=== PATIENT | male | born 2000 | race Caucasian/White ===

== ENCOUNTER 2023-12-17 20:36 | Emergency (ER) | payer OTHER, SELFPAY ==
[2023-12-17 20:39] VITALS: BP 134/74; PULSE 84; TEMP 36.4; O2SAT 100; BMI 19.8
--- NOTE | 2023-12-17 20:47 | XR_ITS ---
The [address] [address] Patient Name: ANNA NEVAREZ MRN: [id number] date: 2000 Sex: M Assigned Patient Location: ER Current Patient Location: Accession/Order Number: [id number] Exam Date: 12/17/2023 21:07 Report Date: 12/17/2023 22:43 At the request of: KALYN CAR Procedure: XR hand LT min 3V HISTORY: Contusion COMPARISON: There are no previous studies available for comparison. TECHNIQUE: 3 views of the left hand. FINDINGS: BONE DENSITY: Normal. JOINTS: No acute abnormality. FRACTURE: No acute fracture. DISLOCATION: None. SOFT TISSUES: No radiopaque foreign body. XR/XR hand LT min 3V IMPRESSION: No acute osseous or joint abnormality. Electronically authenticated by: RY BLACKBURN Date: 12/17/2023 22:43
--- NOTE | 2023-12-17 20:50 | ED_ITS ---
HPI HPI - Extremity Injury (Upper) General Chief Complaint: Extremity Injury, Upper Stated Complaint: Extremity Injury, Upper Time Seen by Provider: 12/17/23 20:37 Source: patient Mode of arrival: walk-in Limitations: no limitations History of Present Illness HPI narrative: 23-year-old male presents to the emergency department for pain to his left hand. Shortly before coming into the emergency department the thenar eminence of his left hand was hit by a crossbow. He is right-handed and had a tetanus shot less than 10 years ago. No other injury was sustained. Hurts more to move it. Related Data Previous Rx's ?Medication ?Instructions ?Recorded acetaminophen 300 mg-codeine 30 mg 1 tab PO Q6H PRN pain 5 days #20 12/17/23 tablet tabs ibuprofen 800 mg tablet 800 mg PO Q8H PRN pain #20 tabs 12/17/23 Allergies Allergy/AdvReac Type Severity Reaction Status Date / Time No Known Drug Allergies Allergy Verified 12/17/23 20:45 Opioid HPI Opioid Management Most Recent Pain and Opioid Data: No Data to Display Review of Systems ROS Narrative A ten point review of systems is negative except as noted above. PFSH PFSH Social History Little interest or pleasure in doing things: not at all Feeling down, depressed, or hopeless: not at all Exam Narrative Exam Narrative: Nurses note and vital signs reviewed and patient is not hypoxic. General: The patient appears well and in no apparent distress. Patient is r esting comfortably on cart. Skin: Warm, dry, no pallor noted. There is no rash noted. Head: Normocephalic, atraumatic Eye: Normal conjunctiva, no drainage Ears, Nose, Mouth, and Throat: oral mucosa is moist. Nares patent. Cardiovascular: Regular Rate and Rhythm Respiratory: Patient is in no distress, no accessory muscle use Back: non-tender GI: Soft and nontender Musculoskeletal: Left thenar eminence is swollen and he has a very small abrasion present. There is no laceration. Other fingers are unaffected. Neurological: A&O, normal speech Psychiatric: Cooperative Constitutional Vital Signs, click to edit/add: Last Vital Signs Temp 97.6 F 12/17/23 20:39 Pulse 84 12/17/23 20:39 Resp 16 12/17/23 20:39 BP 134/74 12/17/23 20:39 Pulse Ox 100 12/17/23 20:39 O2 Del Method Room Air 12/17/23 20:39 Course Vital Signs Vital signs: Vital Signs Temperature 97.6 F 12/17/23 20:39 Pulse Rate 84 12/17/23 20:39 Respiratory Rate 16 12/17/23 20:39 Blood Pressure 134/74 12/17/23 20:39 Pulse Oximetry 100 12/17/23 20:39 Oxygen Delivery Method Room Air 12/17/23 20:39 Temperature 97.6 F 12/17/23 20:39 Pulse Rate 84 12/17/23 20:39 Respiratory Rate 16 12/17/23 20:39 Blood Pressure 134/74 12/17/23 20:39 Pulse Oximetry 100 12/17/23 20:39 Oxygen Delivery Method Room Air 12/17/23 20:39 MDM - Extremity Injury (Upper) MDM Narrative Medical decision making narrative: X-ray of the hand on my interpretation shows no acute findings. Tetanus is up-to-date. Thumb spica splint applied, application checked by me and found to be appropriate, he is neurovascular intact. He was started on Tylenol 3 and Motrin here and prescribed same. Treatment diagnosis and follow-up were discussed with the patient Differential Diagnosis Differential diagnosis: Likely other (Contusion, fracture) Imaging Data Left hand x-ray: My impression: No acute findings Discharge Plan Discharge Chief Complaint: Extremity Injury, Upper Clinical Impression: Contusion of hand Patient Disposition: Home, Self-Care Time of Disposition Decision: 21:28 Condition: Good Mode of Transportation: Private Vehicle Prescriptions / Home Meds: New acetaminophen-codeine 300-30 mg tablet 1 tab PO Q6H PRN (Reason: pain) 5 Days Qty: 20 0RF ibuprofen 800 mg tablet 800 mg PO Q8H PRN (Reason: pain) Qty: 20 0RF Print Language: Vincentian Instructions: Contusion in Adults (ED) Referrals: Topher Deshpande MD [Primary Care Provider] - 1 week
[2023-12-17] MEDS: ACETAMINOPHEN 300 MG/ 30 MG CODEINE TABLET 1 TAB PO (21:50)
[2023-12-17] MEDS: IBUPROFEN 400 MG TABLET 800 MG PO (21:50)
== END 2023-12-17 22:14 | disposition home or self-care (01) ==
PROVIDERS: Emergency Provider Emergency Medicine; PCP Family Medicine
DX: S60.222A Contusion of left hand, initial encounter (principal); W22.8XXA Striking against or struck by other objects, initial encounter
CPT/HCPCS: 73130; 99283

== ENCOUNTER 2023-12-28 10:38 | Emergency (ER) | payer OTHER, SELFPAY ==
[2023-12-28 10:47] VITALS: BP 118/70; PULSE 77; TEMP 36.4; O2SAT 98; BMI 22.0
--- NOTE | 2023-12-28 10:50 | ED.GENADUL1 ---
HPI HPI - General Adult General Chief complaint: Abdominal Pain Stated complaint: NAUSEA Time Seen by Provider: 12/28/23 10:39 Source: patient Mode of arrival: walk-in Limitations: no limitations History of Present Illness HPI narrative: Patient presents ED complaining of nausea vomiting. He said it started around 6 AM this morning. He went to bed last night with a stuffy nose and thought maybe he was coming down with something. He woke up this morning and was vomiting. No other sick contacts that he knows about. He does smoke around the patient states he does not remember eating anything out of the norm. and baby at home are not sick at this time. He is alert and oriented no acute distress vital signs stable resting comfortably in the bed. He said he was just concerned because when he was throwing up he was sweaty and he was throwing up multiple times so he came in for evaluation. Related Data Previous Rx's ?Medication ?Instructions ?Recorded ondansetron 4 mg disintegrating 4 mg PO DAILY PRN nausea and 12/28/23 tablet vomiting #15 tabs Allergies Allergy/AdvReac Type Severity Reaction Status Date / Time No Known Drug Allergies Allergy Verified 12/28/23 10:47 Opioid HPI Opioid Management Most Recent Opioid Data: Last Pain Scale 8 12/17/23 21:50 12/17/23 Review of Systems ROS Status of ROS 10 or more systems reviewed and unremarkable except as noted in history and below PFSH PFSH Social History Little interest or pleasure in doing things: not at all Feeling down, depressed, or hopeless: not at all Exam Narrative Exam Narrative: General: alert, no acute distress Cardiovascular: regular rate and rhythm, normal peripheral perfusion. Respiratory: Lungs CTA, respirations non labored. Extremities: no deformity, no trauma. Neurological: oriented x 4, LOC appropriate for age. Abdomen soft nontender nondistended. Constitutional Vital Signs, click to edit/add: Last Vital Signs Temp 97.6 F 12/28/23 10:47 Pulse 77 12/28/23 10:47 Resp 18 12/28/23 10:47 BP 118/70 12/28/23 10:47 Pulse Ox 98 12/28/23 10:47 O2 Del Method Room Air 12/28/23 10:47 Course Vital Signs Vital signs: Vital Signs Temperature 97.6 F 12/28/23 10:47 Pulse Rate 77 12/28/23 10:47 Respiratory Rate 18 12/28/23 10:47 Blood Pressure 118/70 12/28/23 10:47 Pulse Oximetry 98 12/28/23 10:47 Oxygen Delivery Method Room Air 12/28/23 10:47 Temperature 97.6 F 12/28/23 10:47 Pulse Rate 77 12/28/23 10:47 Respiratory Rate 18 12/28/23 10:47 Blood Pressure 118/70 12/28/23 10:47 Pulse Oximetry 98 12/28/23 10:47 Oxygen Delivery Method Room Air 12/28/23 10:47 Medical Decision Making MDM Narrative Medical decision making narrative: Patient most likely has an GI virus. He was given p.o. Zofran here in ED. Abdomen soft nontender nonsurgical. I do not see any reason for labs or CAT scan at this time. If symptoms worsen or are not improving please return to ED if worsening otherwise follow-up with family doctor. Zofran prescription will be given for home. Differential Diagnosis Differential Diagnosis: Gastroenteritis, gastritis, cyclic vomiting syndrome, food poisoning Discharge Plan Discharge Chief Complaint: Abdominal Pain Clinical Impression: Gastroenteritis Patient Disposition: Home, Self-Care Time of Disposition Decision: 10:52 Condition: Good Mode of Transportation: Private Vehicle Prescriptions / Home Meds: New ondansetron 4 mg tablet,disintegrating 4 mg PO DAILY PRN (Reason: nausea and vomiting) Qty: 15 0RF Print Language: Mauritanian Instructions: Gastroenteritis (ED) Referrals: Topher Deshpande MD [Primary Care Provider] - 1 week
--- OUTSIDE RECORDS SUMMARY | 2023-12-28 10:56 | XMS_ITS | CCD ---
Author Organization [facility] Care Team Providers Care All Round Logger Name Role Phone EDUARD, DR BLANC Admitting Unavailable EDUARD, DR BLANC Attending Unavailable EDUARD, DR BLANC Primary Care Unavailable EDUARD, DR BLANC Consulting Unavailable EDUARD, DR BLANC Admitting Unavailable EDUARD, DR BLANC Attending Unavailable EDUARD, DR BLANC Consulting Unavailable EDUARD, DR BLANC Admitting Unavailable EDUARD, DR BLANC Attending Unavailable EDUARD, DR BLANC Consulting Unavailable KIMBER, DR ALESIA Li Admitting Unavailable KIMBER, DR ALESIA Li Attending Unavailable EDUARD, DR BLANC Primary Care Unavailable KIMBER, DR ALESIA Li Consulting Unavailable ROXIE PRICE Consulting Unavailable DARION ANDREW Consulting Unavailable Problems Active Problems Problem Classification Problem Date Documented Da te Episodic/Chronic Abdominal pain (4 sources) Unspecified abdominal pain; Translations: [UNSPECIFIED ABDOMINAL PAIN] Onset: 05-04-2021 Episodic Other circulatory disease (1 source) Arteritis, unspecified; Translations: [ARTERITIS UNSPECIFIED] Onset: 05-06-2021 Chronic Screening and history of mental health and substance abuse codes (1 source) Personal history of nicotine dependence; Translations: [PERSONAL HISTORY OF NICOTINE DEPEND] Onset: 05-06-2021 Episodic Unclassified (3 sources) CONTACT W/AND (SUSP) EXPOS COVID-19; Translations: [CONTACT W/AND (SUSP) EXPOS COVID-19] Onset: 06-24-2021 Urinary tract infections (1 source) Cystitis, unspecified without hematuria; Translations: [CYSTITIS UNS WITHOUT HEMATURIA] Onset: 05-06-2021 Episodic Past or Other Problems Problem Classification Problem Date Documented Da te Episodic/Chronic Unclassified (1 source) CONTACT W/AND (SUSP) EXPOS COVID-19; Translations: [CONTACT W/AND (SUSP) EXPOS COVID-19] Onset: 06-22-2021 Results Test Name Value Interpretation Reference Range Jaxson rm Covid-19 PCR (CVDTBH)on 06-05 SARS-CoV-2 (COVID-19) RNA LILLIE+probe Ql (Unsp spec) Not detected Normal NOT DETECTED [facility] Comment on above: Result Comment: This test is not yet approved or cleared by the [place] FDA. When there are no FDA-approved or cleared tests available, and other criteria are met, FDA can make tests available under an emergency access mechanism called an Emergency Use Authorization (EUA). The EUA for this test is supported by the [place] of Health and Human Service's (HHS's) declaration that circumstances exist to justify the emergency use of in vitro diagnostics for the detection and/or diagnosis of the virus that causes COVID-19. This EUA will remain in effect (meaning this test can be used) for the duration of the COVID-19 declaration justifying emergency of IVDs, unless it is terminated or revoked by FDA (after which the test may no longer be used). When diagnostic testing is negative, the possibility of a false negative should be considered in the context of a patient's recent exposures and the presence of clinical signs and symptoms consistent with SARS-CoV-2. Performed By: #### C VDTBH #### [facility] [address] [place] [address] Dr. Florinda Davison CBC AUTO DIFFon 05-04-2021 BASO # 0.1 103/ul Normal 0.0-0.[address] [facility] Comment on above: Performed By: #### C BC #### [facility] [address] [place] [address] Dr. Florinda Davison Basophils/100 WBC (Bld) 0.4 % Normal 0.2-2.[address] [facility] Comment on above: Performed By: #### C BC #### [facility] [address] [place] [address] Dr. Florinda Davison EO # 0.0 103/ul Normal 0.0-0.7 [facility] Comment on above: Performed By: #### C BC #### [facility] [address] [place] [address] Dr. Florinda Davison Eosinophils/100 WBC (Bld) 0.1 % Critically low 0.9-7.0 [facility] Comment on above: Performed By: #### C BC #### [facility] [address] [place] [address] Dr. Florinda Davison Erythrocyte distribution width (RBC) [Ratio] 13.0 % Normal 11.0-15.0 [facility] Comment on above: Performed By: #### C BC #### [facility] [address] [place] [address] Dr. Florinda Davison Hematocrit (Bld) [Volume fraction] 44.4 % Normal 42.0-54.0 [facility] Comment on above: Performed By: #### C BC #### [facility] [address] [place] [address] Dr. Florinda Davison Hemoglobin (Bld) [Mass/Vol] 14.6 g/dL Normal 14.0-18.0 [facility] Comment on above: Performed By: #### C BC #### [facility] [address] [place] [address] Dr. Florinda Davison IG # 0.05 10e3/ul Critically high 0.00-0.03 [facility] Comment on above: Performed By: #### C BC #### [facility] [address] [place] [address] Dr. Florinda Davison IG % 0.4 % Normal 0.0-0.5 [facility] Comment on above: Performed By: #### C BC #### [facility] [address] [place] [address] Dr. Florinda Davison LYMPH # 1.6 103/ul Normal 1.2-3.8 [facility] Comment on above: Performed By: #### C BC #### [facility] [address] [place] [address] Dr. Florinda Davison Lymphocytes/100 WBC (Bld) 11.8 % Critically low 20.5-60.0 [facility] Comment on above: Performed By: #### C BC #### [facility] [address] [place] [address] Dr. Florinda Davison MANUAL DIFF REQ NO Normal [facility] Comment on above: Performed By: #### C BC #### [facility] [address] [address] [address] Florinda Davison MCH (RBC) [Entitic mass] 26.4 pg Normal 25.9-34.0 [facility] Comment on above: Performed By: #### C BC #### [facility] [address] [address] [address] Florinda Davison MCHC (RBC) [Mass/Vol] 32.9 g/dL Normal 29.9-35.2 [facility] Comment on above: Performed By: #### C BC #### [facility] [address] [place] [address] Dr. Florinda Davison MCV (RBC) [Entitic vol] 80.3 fL Normal 80.0-94.0 [facility] Comment on above: Performed By: #### C BC #### [facility] [address] [place] [address] Dr. Florinda Davison MONO # 0.7 103/ul Normal 0.3-0.8 [facility] Comment on above: Performed By: #### C BC #### [facility] [address] [place] [address] Dr. Florinda Davison Monocytes/100 WBC (Bld) 4.9 % Normal 1.7-12.0 [facility] Comment on above: Performed By: #### C BC #### [facility] [address] [place] [address] Dr. Florinda Davison NEUT # 11.5 103/ul Critically high 1.4-6.5 [facility] Comment on above: Performed By: #### C BC #### [facility] [address] [place] [address] Dr. Florinda Davison Neutrophils/100 WBC (Bld) 82.4 % Critically high 43.0-75.0 [facility] Comment on above: Performed By: #### C BC #### [facility] [address] [place] [address] Dr. Florinda Davison Platelet mean volume (Bld) [Entitic vol] 10.7 fL Normal 9.5-13.[address] [facility] Comment on above: Performed By: #### C BC #### [facility] [address] [place], [place] [address] Dr. Florinda Davison PLT 284 103/ul Normal 150-[address] [facility] Comment on above: Performed By: #### C BC #### [facility] [address] [place], [place] [address] Dr. Florinda Davison RBC 5.53 106/ul Normal 4.70-6.10 [facility] Comment on above: Performed By: #### C BC #### [facility] [address] [place], [place] [address] Dr. Florinda Davison WBC 13.9 103/ul Critically high 4.0-11.0 [facility] Comment on above: Performed By: #### C BC #### [facility] [address] [place] [id number] ABD/PELV W CONon 05-04-19 CT ABD/PELV W CON EXAMINATION: CT ABD/PELV W CON HISTORY: Right sided abdominal pain COMPARISON: None. TECHNIQUE: Multiple axial images of the abdomen and pelvis are obtained following the administration of IV contrast material. Coronal and sagittal reformatted sequences are submitted for review. Dose reduction techniques were achieved by using automated exposure control and/or adjustment of mA and/or kV according to patient size and/or use of iterative reconstruction technique. FINDINGS: The lung bases are clear. The heart size is normal. The liver, gallbladder, spleen, pancreas and bilateral adrenal glands appear unremarkable. Bilateral kidneys demonstrate normal size, morphology and contrast enhancement. There is no evidence for hydronephrosis bilaterally. The stomach and duodenum appear unremarkable. Nonobstructive bowel pattern is seen. The appendix is likely visualized and appears unremarkable. No abnormal pericecal inflammatory changes are seen. Diffuse and significant wall thickening of the urinary bladder is seen, suggestive of infectious/inflammato ry process and cystitis. Please correlate clinically. Bilateral seminal vesicles appear prominent and demonstrate mild rim enhancement, which may represent infectious/inflammato ry process and seminal vesiculitis. Please correlate clinically. No significant free fluid or abnormal fluid collection is seen in the abdomen and pelvis. The vascular structures demonstrate normal caliber and contrast enhancement. The abdominal wall and visualized soft tissues appear unremarkable. No acute osseous abnormality is seen. IMPRESSION: Diffuse and significant wall thickening of the urinary bladder is seen, suggestive of infectious/inflammato ry process and cystitis. Please correlate clinically. Bilateral seminal vesicles appear prominent and demonstrate mild rim enhancement, which may represent infectious/inflammato ry process and seminal vesiculitis. Please correlate clinically. Normal-appearing appendix is visualized. Electronically authenticated by: DARION ANDREW Date: 2021-05-04 21:[address] [facility] ER URINE PROFILEon 2 Bilirubin Ql (U) Negative Normal NEGATIVE [facility] Comment on above: Performed By: #### E RUR #### [facility] [address] [place] [address] Dr. Florinda Davison Clarity (U) CLEAR Normal CLEAR [facility] Comment on above: Performed By: #### E RUR #### [facility] [address] [place] [address] Dr. Florinda Davison Color (U) LT. YELLOW Normal YELLOW [facility] Comment on above: Performed By: #### E RUR #### [facility] [address] [place] [address] Dr. Florinda Davison ERUAHD A micrscopic examination will be performed if indicated. Normal [facility] Comment on above: Performed By: #### E RUR #### [facility] [address] [place] [address] Dr. Florinda Davison Glucose Ql (U) Negative Normal NEGATIVE [facility] Comment on above: Performed By: #### E RUR #### [facility] [address] [place] [address] Dr. Florinda Davison Hemoglobin Ql (U) Negative Normal NEGATIVE [facility] Comment on above: Performed By: #### E RUR #### [facility] [address] [place] [address] Dr. Florinda Davison Ketones Ql (U) TRACE Abnormal NEGATIVE [facility] Comment on above: Performed By: #### E RUR #### [facility] [address] [place] [address] Dr. Florinda Davison LEUKOCYTES Negative Normal NEGATIVE [facility] Comment on above: Performed By: #### E RUR #### [facility] [address] [place] [address] Dr. Florinda Davison Nitrite Ql (U) Negative Normal NEGATIVE [facility] Comment on above: Performed By: #### E RUR #### [facility] [address] [place] [address] Dr. Florinda Davison pH (U) 7.0 [pH] Normal 5-9 [facility] Comment on above: Performed By: #### E RUR #### [facility] [address] [place] [address] Dr. Florinda Davison SPEC GRAVITY 1.010 Normal 1.005-<=1.025 [facility] Comment on above: Performed By: #### E RUR #### [facility] [address] [place] [address] Dr. Florinda Davison UA PROTEIN Negative Normal NEGATIVE/ TRACE [facility] Comment on above: Performed By: #### E RUR #### [facility] [address] [place] [address] Dr. Florinda Davison UR MICRO IND NOT INDICATED Normal [facility] Comment on above: Performed By: #### E RUR #### [facility] [address] [place] [address] Dr. Florinda Davison Urobilinogen Qn (U) 0.2 {Rayna'U}/dL Normal 0.2 - 1. 0 [facility] Comment on above: Performed By: #### E RUR #### [facility] [address] [place] [address] Dr. Florinda Davison LACTATE/LACTIC ACIDon 2021 Lactate [Moles/Vol] 0.8 mmol/L Normal 0.7-2.0 [facility] Comment on above: Performed By: #### L ACT #### [facility] [address] [place] [address] Dr. Florinda Davison LIPASEon 05-04-2021 Lipase [Catalytic activity/Vol] 73.0 U/L Normal 23.0-300.0 [facility] Comment on above: Performed By: #### C MP, LIPA #### [facility] [address] [place] [address] Dr. Florinda Davison MONOon 05-04-2021 Monocytes (Bld) [#/Vol] Negative Normal NEGATIVE [facility] Comment on above: Performed By: #### M KHUSHI #### [facility] [address] [place] [address] Dr. Florinda Davison PROF 14(COMP METB)on 022 Albumin [Mass/Vol] 5.4 g/dL Critically high 3.5-5.0 [facility] Comment on above: Performed By: #### C MP, LIPA #### [facility] [address] [place] [address] Dr. Florinda Davison Albumin/Globulin [Mass ratio] 1.8 {ratio} Normal [facility] Comment on above: Performed By: #### C MP, LIPA #### [facility] [address] [place] [address] Dr. Florinda Davison ALP [Catalytic activity/Vol] 74 U/L Normal 38-126 [facility] Comment on above: Performed By: #### C MP, LIPA #### [facility] [address] [place] [address] Dr. Florinda Davison ALT [Catalytic activity/Vol] 19 U/L Critically low 21-72 [facility] Comment on above: Performed By: #### C MP, LIPA #### [facility] [address] [place] [address] Dr. Florinda Davison Anion gap [Moles/Vol] 10.4 mmol/L Normal [facility] Comment on above: Performed By: #### C MP, LIPA #### [facility] [address] [place] [address] Dr. Florinda Davison AST [Catalytic activity/Vol] 14 U/L Critically low 17-59 [facility] Comment on above: Performed By: #### C MP, LIPA #### [facility] [address] [place] [address] Dr. Florinda Davison Bilirubin [Mass/Vol] 0.5 mg/dL Normal 0.2-1.3 [facility] Comment on above: Performed By: #### C MP, LIPA #### [facility] [address] [place] [address] Dr. Florinda Davison Calcium [Mass/Vol] 9.7 mg/dL Normal 8.4-10.2 [facility] Comment on above: Performed By: #### C MP, LIPA #### [facility] [address] [place] [address] Dr. Florinda Davison Chloride [Moles/Vol] 102 mmol/L Normal 98-107 [facility] Comment on above: Performed By: #### C MP, LIPA #### [facility] [address] [place] [address] Dr. Florinda Davison CO2 [Moles/Vol] 27.3 mmol/L Normal 22.0-30.0 [facility] Comment on above: Performed By: #### C MP, LIPA #### [facility] [address] [place] [address] Dr. Florinda Davison Creatinine [Mass/Vol] 0.94 mg/dL Normal 0.66-1.25 [facility] Comment on above: Performed By: #### C MP, LIPA #### [facility] [address] [place] [address] Dr. Florinda Davison EGFR-AF [facility]CI[facility] >60 Normal >=60 [facility] Comment on above: Performed By: #### C MP, LIPA #### [facility] [address] [place] [address] Dr. Florinda Davison EGFR-NON AF [facility] >60 Normal >=60 [facility] Comment on above: Performed By: #### C MP, LIPA #### [facility] [address] [place] [address] Dr. Florinda Davison Globulin (S) [Mass/Vol] 3.0 g/dL Normal [facility] Comment on above: Performed By: #### C MP, LIPA #### [facility] [address] [place] [address] Dr. Florinda Davison Glucose [Mass/Vol] 97 mg/dL Normal 74-106 [facility] Comment on above: Performed By: #### C MP, LIPA #### [facility] [address] [place] [address] Dr. Florinda Davison Potassium [Moles/Vol] 3.7 mmol/L Normal 3.4-5.0 [facility] Comment on above: Performed By: #### C MP, LIPA #### [facility] [address] [place] [address] Dr. Florinda Davison Protein [Mass/Vol] 8.4 g/dL Critically high 6.1-8.2 [facility] Comment on above: Performed By: #### C MC, LIPA #### [facility] [address] [place] [address] Dr. Florinda Davison Sodium [Moles/Vol] 136 mmol/L Critically low 137-145 [facility] Comment on above: Performed By: #### C MC, LIPA #### [facility] [address] [place] [address] Dr. Florinda Davison Urea nitrogen [Mass/Vol] 14.0 mg/dL Normal 9.0-20.0 [facility] Comment on above: Performed By: #### C MC, LIPA #### [facility] [address] [place] [address] Dr. Florinda Davison Urea nitrogen/Creatinine [Mass ratio] 14.9 mg/mg Normal [facility] Comment on above: Performed By: #### C MC, LIPA #### [facility] [address] [place] [address] Dr. Florinda Davison Covid-19 PCR (CVDTB)on SARS-CoV-2 (COVID-19) RNA LILLIE+probe Ql (Unsp spec) Not detected Normal NOT DETECTED [facility] Comment on above: Result Comment: This test is not yet approved or cleared by the [place] FDA. When there are no FDA-approved or cleared tests available, and other criteria are met, FDA can make tests available under an emergency access mechanism called an Emergency Use Authorization (EUA). The EUA for this test is supported by the [place] of Health and Human Service's (HHS's) declaration that circumstances exist to justify the emergency use of in vitro diagnostics for the detection and/or diagnosis of the virus that causes COVID-19. This EUA will remain in effect (meaning this test can be used) for the duration of the COVID-19 declaration justifying emergency of IVDs, unless it is terminated or revoked by FDA (after which the test may no longer be used). When diagnostic testing is negative, the possibility of a false negative should be considered in the context of a patient's recent exposures and the presence of clinical signs and symptoms consistent with SARS-CoV-2. Performed By: #### C VDTB #### [facility] [address] [place] [address] Dr. Florinda Davison Covid-19 PCR ([facility])on SARS-CoV-2 (COVID-19) RNA LILLIE+probe Ql (Unsp spec) Not detected Normal NOT DETECTED [facility] Comment on above: Result Comment: This test is not yet approved or cleared by the [place] FDA. When there are no FDA-approved or cleared tests available, and other criteria are met, FDA can make tests available under an emergency access mechanism called an Emergency Use Authorization (EUA). The EUA for this test is supported by the [place] of Health and Human Service's (HHS's) declaration that circumstances exist to justify the emergency use of in vitro diagnostics for the detection and/or diagnosis of the virus that causes COVID-19. This EUA will remain in effect (meaning this test can be used) for the duration of the COVID-19 declaration justifying emergency of IVDs, unless it is terminated or revoked by FDA (after which the test may no longer be used). When diagnostic testing is negative, the possibility of a false negative should be considered in the context of a patient's recent exposures and the presence of clinical signs and symptoms consistent with SARS-CoV-2. Performed By: #### C VDTB #### [facility] [address] [place], [place] [id number] Dr. Florinda Davison Encounters Encounter Date Encounter Type Care Provider Facility Start: 06-22-2021 End: 06-22-[address] GUANACO CHAPA Facility:[facility] Start: 05-04-2021 End: 05-05-[address] ALESIA QUIROGA Facility:[facility] Start: 03-12-2021 End: 03-12-[address] GUANACO CHAPA Facility:[facility] Start: 01-07-2021 End: 01-07-[address] GUANACO CHAPA Facility:[facility] Payers Date Payer Category Payer Unknown [id number] 1999 Unknown [id number] [id number] 1999 Unknown [id number] 1999 Unknown [id number] 1959 Unknown [id number] Summary Purpose Family History No Family History Records Found Advance Directives No Advanced Directives Records Found Additional Source Comments (unrecognized sect ion and content) No Status Records Found INFORMATION SOURCE (unrecogn ized section and content) DATE CREATED AUTHOR 06/25/2021 [facility] FOR RECORDS PERTAINING TO PATIENTS WHO ARE OR HAVE BEEN ENROLLED IN A CHEMICAL DEPENDENCY/SUBSTANCEABUSE PROGRAM, SOME INFORMATION MAY BE OMITTED. This clinical summary was aggregated from multiple sources. Caution should be exercised in using it in the provision of clinical care. This summary normalizes information from multiple sources, and as a consequence, information in this document may materially change the coding, format and clinical context of patient data. In addition, data may be omitted in some cases. CLINICAL DECISIONS SHOULD BE BASED ON THE PRIMARY CLINICAL RECORDS. [facility]. provides no warranty or guarantee of the accuracy or completeness of information in this document.
[2023-12-28] MEDS: ONDANSETRON 4 MG RAPDIS TABLET SL (10:58)
[2023-12-28 11:01] VITALS: BP 118/70; PULSE 88; O2SAT 99
== END 2023-12-28 11:02 | disposition home or self-care (01) ==
PROVIDERS: Emergency Provider Emergency Medicine; PCP Family Medicine
DX: K52.9 Noninfective gastroenteritis and colitis, unspecified (principal)
CPT/HCPCS: 99283; Q0162